=== PATIENT | male | born 1950 | race Caucasian/White ===

== ENCOUNTER 2022-10-15 06:33 | Day surgery (SDC) | payer MEDICARE ==
[2022-10-08 15:10] LABS: BASOPHILS % (AUTO) 0.5 % (0-1); EOSINOPHILS # (AUTO) 0.2 X10'3 (0-0.9); EOSINOPHILS % (AUTO) 3.1 % (0-6); LYMPHOCYTES # (AUTO) 1.7 X10'3 (1.1-4.8); LYMPHOCYTES % (AUTO) 24.8 % (21-51); MEAN CORPUSCULAR HEMOGLOBIN 32.6 PG (27.0-31.0); MEAN CORPUSCULAR HGB CONC 34.1 g/dL (33.0-36.5); MEAN CORPUSCULAR VOLUME 95.8 FL (78-98); MEAN PLATELET VOLUME 7.9 FL (7.4-10.4); MONOCYTES # (AUTO) 0.7 X10'3 (0-0.9); MONOCYTES % (AUTO) 10.4 % (2-12); NEUTROPHILS # (AUTO) 4.2 X10'3 (1.8-7.7); NEUTROPHILS % (AUTO) 61.2 % (42-75); PRE OP HEMATOCRIT 53.6 % (42.0-52.0); PRE OP PLATELET COUNT 204 X10'3 (140-440); RED CELL DISTRIBUTION WIDTH 13.5 % (11.5-14.5)
[2022-10-08 15:15] LABS: PRE OP HEMOGLOBIN 18.3 g/dL (14.0-17.9)
[2022-10-08 15:25] LABS: ALBUMIN 3.8 G/DL (3.4-5.0); ALBUMIN/GLOBULIN RATIO 1.3 (1.1-1.5); ALKALINE PHOSPHATASE 44 IU/L (46-116); BLOOD UREA NITROGEN 17 MG/DL (7-18); CHLORIDE 107 MMOL/L (99-107); CREATININE 1.06 MG/DL (0.60-1.10); PRE OP ALT 23 U/L (30-65); PRE OP ANION GAP 8 (8-16); PRE OP AST 20 U/L (10-37); PRE OP BILIRUB, TOTAL 0.4 MG/DL (0.0-1.0); PRE OP GLUCOSE 108 MG/DL (70-104); PRE OP POTASSIUM 4.1 MMOL/L (3.4-5.1); PRE OP SODIUM 142 MMOL/L (135-145); TOTAL CARBON DIOXIDE 27.3 MMOL/L (24-32); TOTAL PROTEIN 6.8 G/DL (6.4-8.2); eGFR 69 ML/MIN
[~2022-10-15] VITALS: Ht 165.1 cm; Wt 84.3 kg
[~2022-10-15 06:33] MED LIST: CALCIUM,MAG,ZINC; DENO60DI SUBCUT; GLUC1TAB75; MVI; TEST200V6 SQ; VIT D3; cefazolin 2gm/D5W 100mL 100 ML IV ONE; famotidine 20mg tablet PO ONE; ringers solution, lacted 1,000 ML IV SCH
[2022-10-15] MEDS ORDERED: BUPIVAcaine/PF 2.5 mg/ml (0.25%) 30ml vial ONE (07:24)
[2022-10-15] MEDS ORDERED: LIDOcaine 0.5% (5mg/ml) 50ml vial ONE (07:24)
[2022-10-15] MEDS ORDERED: fentaNYL/PF 50MCG/1 ML 2ML syringe ONE (07:37)
[2022-10-15 07:44] VITALS: BP 148/89
[2022-10-15 07:45] VITALS: BP 148/89
[2022-10-15] MEDS ORDERED: midazolam 1 mg/ML 2ml injection ONE (07:49)
[2022-10-15] MEDS ORDERED: LIDOcaine 2% (20mg/ml) 5ml vial ONE (08:06)
[2022-10-15] MEDS ORDERED: propofol inj 0 ML IV ONE ×3 (08:06→08:18)
[2022-10-15] MEDS ORDERED: propofol inj 20 ML IV ONE (08:18)
[2022-10-15] MEDS ORDERED: hydrALAZINE 20mg/ml inj. IV PRN (08:20)
[2022-10-15] MEDS ORDERED: acetaminophen 1,000mg/100ml IV 100 ML IV PRN (08:20)
[2022-10-15] MEDS ORDERED: ringers solution, lacted 1,000 ML IV SCH (08:20)
[2022-10-15] MEDS ORDERED: ondansetron/PF 4mg/2ml inj IV PRN (08:20)
[2022-10-15] MEDS ORDERED: labetalol 20mg/4ml (5mg/ml) syringe IV PRN (08:20)
[2022-10-15] MEDS ORDERED: meperidine/PF 25mg/ml syringe IV PRN ×3 (08:20)
[2022-10-15] MEDS ORDERED: morphine 4 MG/ML inj SYRINge IV PRN (08:20)
[2022-10-15] MEDS ORDERED: morphine 2 MG/ML inj. syringe IV PRN (08:20)
[2022-10-15] MEDS ORDERED: proCHLORperazine 10 MG/2 ml inj IV PRN (08:20)
[2022-10-15 10:42] VITALS: BP 143/87
--- NOTE | 2022-10-15 10:42 | NUR ---
Received from OR via [facility], accompanied by Anesthesiologist and report given by [facility] Anesthesiologist. PATIENT WAKING UP, NO S/S OF PAIN, V/S WNL, SCD ON, PIV 20G TO LEFT WRIST, RIGHT WRIST DRESSING C/D/I. ICE AND ELEVATED RUE. Addendum: 10/15/22 at 1051 by Mundo Leal RN Amended: Links added.
[2022-10-15 10:50] VITALS: BP 133/84
[2022-10-15 11:00] VITALS: BP 134/93
[2022-10-15 11:15] VITALS: BP 154/92
--- NOTE | 2022-10-15 11:17 | NUR ---
ALL DISCHARGE CRITERIA HAS BEEN MET. VSS, PAIN AT A TOLERABLE LEVEL, ABLE TO SAFELY AMBULATE AND TRANSFER SELF. IV TAKEN OUT WITHOUT ANY COMPLICATIONS. ALL DISCHARGE INSTRUCTIONS COVERED WITH PATIENT AND ALL QUESTIONS ANSWERED. PATIENT TAKEN OUT VIA WHEELCHAIR WITH ALL BELONGINGS TO PERSONAL VEHICLE WHERE FAMILY DROVE PATIENT HOME. Addendum: 10/15/22 at 1119 by Mundo Leal RN Amended: Links added.
== END 2022-10-15 11:17 | disposition home or self-care (01) ==
LOC: PAS 06:33
PROVIDERS: ATTEND Orthopaedic Surgery Hand Surgery
DX: G56.01 Carpal tunnel syndrome, right upper limb (principal); M81.0 Age-related osteoporosis without current pathological fracture; M17.11 Unilateral primary osteoarthritis, right knee; Z79.899 Other long term (current) drug therapy; Z98.890 Other specified postprocedural states
CPT/HCPCS: 36415; 64721; 80053; 82948; 85025; J0690; J2250; J2704; J3010; J3490; J7030; J7120; Z7506; Z7512; A4215; A6449